=== PATIENT | female | born 1965 | race Caucasian/White ===

== ENCOUNTER 2021-01-17 05:16 | Observation (INO) | payer OTHER ==
[~2021-01-17] VITALS: Ht 162.6 cm; Wt 142.9 kg
--- NOTE | ~2021-01-17 | CON ---
[facility] [address] [place] [address] CONSULTATION Name: CARLOS COBB Room: [address] IN M.R.#: [id number] Admission: 01/17/21 Attend Phys: Jimi Priest Discharge: Date of : 65 Report #: [id number] THIS REPORT FOR: cc: Natalie Armando MD, Lin W. MD ~ Tommy Rodriguez MD DATE OF SERVICE: 01/17/2021 HISTORY OF PRESENT ILLNESS: This is a 55-year-old female patient who provides a pretty unusual history that she is having weakness in the arms and legs for about 3 months' duration. It became worst over the weekend, so much so that she could not walk. Apparently, rheumatological factor was negative. She said she has more weakness in the left leg as well as the right arm. In the right arm, it is more towards the shoulder region. She has no symptoms referable to stroke. She denies any diabetes. REVIEW OF SYSTEMS: A 14-point review of system is carried out. She has a history of depression. She does not see a psychiatrist. Her family doctor mentioned that she is complaining of lot of pain and swelling in the joints. She denies any history suggestive of MS. She has not had a rheumatological evaluation. She denies any prior history of stroke or heart problems, but there is a family history for that. That was a relevant 14-point review of system. PAST MEDICAL HISTORY: Positive for depression. FAMILY HISTORY: Positive for cardiovascular disease. SOCIAL HISTORY: She says she does not drink or smoke on a regular basis. PHYSICAL EXAMINATION: Indicate she is alert, responsive, able to follow simple and complex command. Her speech, concentration, fund of knowledge and memory is at her baseline. Cranial nerve examination 2-12 looks unremarkable. As far as strength is concerned, she says that she is poor in strength in the right shoulder. She says when she wakes up in the morning, she moves around and she feels better. Similarly, she cannot have any movement in the proximal muscles of the left leg, but she says when she moves around, she feels better. Her pinprick is intact. Her position sense is intact. Knee jerks appeared to be elicitable, so is the upper extremities. There is no cerebellar sign in this patient. Cardiorespiratory examination is unremarkable. Blood pressure is 124/68, respirations 18, pulse is 79, temperature is 99.5. LABORATORY DATA: Indicated white count of 9.7. Sed rate is slightly elevated at 40. [place] [address] CONSULTATION Name: CARLOS COBB Room: [address] ADM IN M.R.#: [id number] Admission: 01/17/21 Attend Phys: Jimi Priest Discharge: Date of : 65 Report #: [id number] IMPRESSION: She has pure motor weakness and I think we should concentrate on evaluating the patient for any rheumatological cause for the patient's symptoms. Unfortunately, no wheat washer comes here and she may have to get that evaluation as an outpatient. Her sed rate and CRP is somewhat high. Local shoulder pathology like rotator cuff problem also needs to be excluded. I did send a myasthenia marker, CPK and some collagen vascular workup. I will get an MRI of the brain and C-spine tomorrow and depending upon that, she may need MRI of the lower spine also, but I think the concentration should be to workup and manage rheumatological factor until this workup shows something. Thank you very much for this referral and we will follow this patient along with you. By: [id number] Rodriguez MD /nt
--- NOTE | ~2021-01-17 | EEG ---
[address] [address] EEG STUDY REPORT Name: CARLOS COBB Room: [address] IN .R.#: [id number] Admission: 01/17/21 Attend Phys: Jimi Priest Discharge: Date of : 65 Report #: [id number] THIS REPORT FOR: cc: Natalie Armando MD, Lin W. MD Khosla,Tommy Peters MD ~ DATE OF SERVICE: 01/18/2021 EEG REPORT This patient is being evaluated for multiple complaints. EEG is being done to evaluate dizziness and syncope-like symptoms. EEG was done by placing the electrode by standard 10-20 system of electrode placement. Both referential and sequential montages were used for recording. Background activity in this patient's EEG is about 10 Hz and 30 microvolt. The patient went to sleep that is associated with bilateral slowing and vertex sharp waves. Photic stimulation is unremarkable. Throughout the record, no active epileptiform activity was noticed. IMPRESSION: This patient's EEG is within normal limits. Thank you very much for this referral. By: [id number] Rodriguez MD /nt
[~2021-01-17 05:16] MED LIST: ACETAMINOPHEN325 M1; ANAPROX DS550 MG; BENADRYL ALLERG25 MG; CHLORTHALIDONE25 MG; COMPAZINE10 M1; LEVAQUIN 750 M750 MG; LOSARTAN POTASS50 MG; MOBIC7.5 MG PO; MULTIVITAMINS; NOHOMEMEDICATIONS; POTASSIUM20; TOPROL XL25 MG PO; TOPROL XL50 MG; VITAMINC500
[2021-01-17 05:19] VITALS: BP 139/70
[2021-01-17] MEDS ORDERED: LODINE400 M1 PO (05:31)
[2021-01-17] MEDS ORDERED: BISOPROLOL-HCT1 EAC2 PO (05:32)
[2021-01-17] MEDS ORDERED: HYDROCODON-ACE1 EAC7 PO (05:32)
[2021-01-17 05:52] LABS: ABSOLUTE BASOPHILS 0.2 thou/uL (0.0-0.2); ABSOLUTE EOSINOPHILS 0.2 thou/uL (0.0-0.7); ABSOLUTE LYMPHOCYTES 2.1 thou/uL (0.8-5.3); ABSOLUTE MONOCYTES 0.9 thou/uL (0.0-1.2); ABSOLUTE NEUTROPHILS 7.3 thou/uL (1.6-8.1); BASOPHILS 1.4 %; HEMATOCRIT 34.2 % (37.0-47.0); HEMOGLOBIN 10.8 gm/dL (12.0-15.0); LYMPHOCYTES 19.9 %; MCH 25.8 pg (26.0-34.0); MCHC 31.6 g/dL (28.0-37.0); MCV 81.5 fL (80.0-100.0); MONOCYTES 8.4 %; MPV 7.3 fl. (7.2-11.1); NUCLEATED RBCS 0 /100WBC; PLATELET COUNT* 396 thou/uL (150-400); POLYS 68.3 %; RDW-CV 16.4 % (10.5-14.5); WBC 10.7 thou/uL (4.0-11.0)
[2021-01-17 06:02] LABS: ANION GAP 10 mmol/L (7-16); BUN 12 mg/dL (7-18); CALCIUM 8.9 mg/dL (8.5-10.1); CHLORIDE 104 mmol/L (98-107); CO2 28 mmol/L (21-32); CREATININE 0.7 mg/dL (0.6-1.3); GLUCOSE 116 mg/dL (70-99); POTASSIUM 3.9 mmol/L (3.5-5.1); SODIUM 142 mmol/L (136-145)
[2021-01-17 06:04] LABS: PROTIME 10.3 Seconds (9.20-11.50)
[2021-01-17 06:13] LABS: ALBUMIN 2.8 g/dL (3.4-5.0); ALKALINE PHOSPHATASE 84 U/L (46-116); MAGNESIUM 2.2 mg/dL (1.8-2.4); NT-PRO BRAIN NAT PEPTIDE 120 pg/mL (<300); SGOT 10 U/L (15-37); SGPT < 6 U/L (30-65); TOTAL BILIRUBIN 0.4 mg/dL (<0.1-1.0)
[2021-01-17 06:52] LABS: URINE BILIRUBIN NEGATIVE (Negative); URINE BLOOD NEGATIVE (Negative); URINE CLARITY CLEAR; URINE COLOR YELLOW; URINE GLUCOSE-RANDOM NEGATIVE (Negative); URINE KETONES NEGATIVE (Negative); URINE LEUKOCYTES-REFLEX TRACE (Negative); URINE NITRITE-REFLEX NEGATIVE (Negative); URINE PROTEIN NEGATIVE (Negative)
[2021-01-17 07:00] LABS: CASTS None Seen /LPF (None Seen); MUCUS 0-3 Light strn/LPF (None Seen); SQUAMOUS 0-3 Few /LPF (0-3); URINE RBC 0-2 Rare /HPF (0-2); URINE WBC-REFLEX 0-5 Rare /HPF (0-5)
[2021-01-17 07:01] LABS: CRYSTALS None Seen /LPF (None Seen)
[2021-01-17 07:11] LABS: ESR (SEDRATE) 40 mm/hr (0-30)
[2021-01-17 08:34] VITALS: BP 137/53
[2021-01-17 10:00] VITALS: BP 124/68
[2021-01-17 17:32] LABS: ABSOLUTE BASOPHILS 0.1 thou/uL (0.0-0.2); ABSOLUTE EOSINOPHILS 0.1 thou/uL (0.0-0.7); ABSOLUTE LYMPHOCYTES 1.7 thou/uL (0.8-5.3); ABSOLUTE MONOCYTES 0.7 thou/uL (0.0-1.2); ABSOLUTE NEUTROPHILS 7.2 thou/uL (1.6-8.1); BASOPHILS 0.8 %; EOSINOPHILS 0.9 %; HEMOGLOBIN 10.9 gm/dL (12.0-15.0); LYMPHOCYTES 17.1 %; MCHC 32.1 g/dL (28.0-37.0); MCV 81.2 fL (80.0-100.0); NUCLEATED RBCS 0 /100WBC; PLATELET COUNT* 391 thou/uL (150-400); POLYS 74.2 %; RBC 4.19 mil/uL (4.20-5.00); RDW-CV 16.7 % (10.5-14.5); WBC 9.7 thou/uL (4.0-11.0)
[2021-01-17 17:40] LABS: CALCIUM 9.4 mg/dL (8.5-10.1); CREATININE 0.8 mg/dL (0.6-1.3); POTASSIUM 3.7 mmol/L (3.5-5.1)
[2021-01-17 17:44] LABS: MAGNESIUM 2.2 mg/dL (1.8-2.4); PHOSPHORUS* 3.2 mg/dL (2.5-4.9)
[2021-01-17 22:00] VITALS: BP 130/63
[2021-01-18 05:27] LABS: CHOLESTEROL 133 mg/dL (<200); HDL CHOLESTEROL 40 mg/dL (>40); LDL CHOLESTEROL 78 mg/dL (<100); TC:HDL 3.3 Ratio (Not establshd); TRIGLYCERIDE 75 mg/dL (<150); VLDL 15 mg/dL (<40)
[2021-01-18 05:33] LABS: SERUM ASSESSMENT Clear
[2021-01-18 08:00] VITALS: BP 149/66
[2021-01-18 17:02] VITALS: BP 144/71
[2021-01-18 21:30] VITALS: BP 132/68
[2021-01-19 02:06] LABS: GLYCOHEMOGLOBIN (HGB A1C) 5.7 % (4.8-5.6)
[2021-01-19 08:06] VITALS: BP 134/76
--- NOTE | 2021-01-19 10:24 | 2DMMODE ---
[place] [address] 2 D/M-MODE ECHOCARDIOGRAM Name: CARLOS COBB Room: [address] ADM IN .Diego.#: [id number] Admission: 01/17/21 Attend Phys: Clarke Wakefield Discharge: Date of : 65 Date of Service: 01/19/21 1024 Report #: [id number] THIS REPORT FOR: cc: Natalie Armando MD, Lin W. MD Blick, David R. MD [facility] ~ APPROVED REPORT Study performed: 01/18/2021 14:35:30 EXAM: Comprehensive 2D, Doppler, and color-flow Echocardiogram/ Bubble Study Patient Location: In-Patient Room #: [facility] BSA: 2.37 HR: 75 bpm BP: 149/66 mmHg Other Information Study Quality: Good Indications CVA/TIA 2D Dimensions IVSd: 10.75 (7-11mm) LVOT Diam: 20.71 (18-24mm) LVDd: 43.94 mm PWd: 10.31 (7-11mm) Ascending Ao: 35.35 (22-36mm) LVDs: 31.59 (25-40mm) Aortic Root: 27.64 mm Volumes Left Atrial Volume (Systole) LA ESV Index: 22.10 mL/m2 Aortic Valve AoV Peak Alex.: 1.36 m/s AO Peak Gr.: 7.36 mmHg LVOT Max P.11 mmHg AO Mean Gr.: 4.05 mmHg LVOT Mean P.80 mmHg LVOT Max V: 1.13 m/s AO V2 VTI: 28.01 cm LVOT Mean V: 0.79 m/s IRASEMA (VTI): 3.00 cm2 LVOT V1 VTI: 24.94 [place] [address] 2 D/M-MODE ECHOCARDIOGRAM Name: CARLOS COBB Room: [address] IN ..#: [id number] Admission: 01/17/21 Attend Phys: Clarke Wakefield Discharge: Date of : 65 Date of Service: 01/19/21 [facility] Report #: [id number] E/A Ratio: 0.75 MV Decel. Time: 229.99 ms MV E Max Alex.: 0.64 m/s MV PHT: 66.70 ms MVA (PHT): 3.30 cm2 TDI E/Lateral E': 4.92 E/Medial E': 8.00 Medial E' Alex.: 0.08 m/s Lateral E' Alex.: 0.13 m/s Pulmonary Valve PV Peak Alex.: 0.92 m/s PV Peak Gr.: 3.41 mmHg Tricuspid Valve RAP Estimate: 5.00 mmHg TR Peak Gr.: 21.23 mmHg RVSP: 26.23 mmHg PA Pressure: 26.23 mmHg Left Ventricle The left ventricle is normal size. There is normal LV segmental wall motion. There is normal left ventricular wall thickness. Left ventricular systolic function is normal. The left ventricular ejection fraction is within the normal range. LVEF is 55-60%. Grade I - abnormal relaxation pattern. Right Ventricle The right ventricle is normal size. The right ventricular systolic function is normal. Atria The left atrium size is normal. Injection of bubbles documented no interatrial shunt. The right atrium size is normal. Aortic Valve The aortic valve is normal in structure. No aortic regurgitation is present. There is no aortic valvular stenosis. Mitral Valve The mitral valve is normal in structure. Mild mitral annular calcification. There is no mitral valve regurgitation noted. No evidence of mitral valve stenosis. Tricuspid Valve The tricuspid valve is normal in structure. Mild [place] [address] 2 D/M-MODE ECHOCARDIOGRAM Name: CARLOS COBB Room: [address] IN .R.#: [id number] Admission: 01/17/21 Attend Phys: Clarke Wakefield Discharge: Date of : 65 Date of Service: 01/19/21 1024 Report #: [id number] Pulmonic Valve Pulmonic valve is not well visualized. There is no pulmonic valvular regurgitation. Great Vessels The aortic root is normal in size. IVC is normal in size and collapses >50% with inspiration. Pericardium There is no pericardial effusion. <Conclusion> LVEF is 55-60%. Injection of bubbles documented no interatrial shunt. <ELECTRONICALLY SIGNED> By: Luis Villarreal MD, FACC 01/19/21 1024 1024 1024 Luis Villarreal MD, FACC /INF
[2021-01-19 15:39] VITALS: BP 121/63
[2021-01-19 19:45] VITALS: BP 120/66
[2021-01-20 07:55] VITALS: BP 134/77
[2021-01-20] MEDS ORDERED: NEURONTIN 300M300 M2 PO (08:34)
[2021-01-20] MEDS ORDERED: HYDROXYZINE HCL25 M2 PO (08:34)
[2021-01-20] MEDS ORDERED: FLEXERIL PO (08:34)
[2021-01-20 11:53] VITALS: BP 134/77
[2021-01-20 13:32] VITALS: BP 134/77
[2021-01-20 13:59] VITALS: BP 134/77
== END 2021-01-20 13:55 | disposition home health service (06) ==
LOC: M.ERS 05:16 → M.TBA-ER 07:21 → M.ORTHSURG 07:21
PROVIDERS: Emergency Medicine; ADMIT Internal Medicine; ATTEND Internal Medicine
DX: G89.29 Other chronic pain (principal); R53.1 Weakness; M79.89 Other specified soft tissue disorders; Z20.822 Contact with and (suspected) exposure to COVID-19; G93.41 Metabolic encephalopathy; F32.9 Major depressive disorder, single episode, unspecified; I10 Essential (primary) hypertension; M19.90 Unspecified osteoarthritis, unspecified site; M72.2 Plantar fascial fibromatosis; Z88.8 Allergy status to other drugs, medicaments and biological substances; Z79.899 Other long term (current) drug therapy; Z90.49 Acquired absence of other specified parts of digestive tract; Z90.89 Acquired absence of other organs

== ENCOUNTER → 2021-02-23 | Outpatient (CLI) | payer OTHER ==
[~2021-02-23] MED LIST changes: +BISOPROLOL-HCT1 EAC2 PO; +FLEXERIL PO; +HYDROCODON-ACE1 EAC7 PO; +HYDROXYZINE HCL25 M2 PO; +LODINE400 M1 PO; +NEURONTIN 300M300 M2 PO
== END ==
LOC: M.CT 07:49
PROVIDERS: ATTEND Internal Medicine
DX: K57.30 Diverticulosis of large intestine without perforation or abscess without bleeding (principal); R60.1 Generalized edema; R60.0 Localized edema